=== PATIENT | female | born 1960 | race Caucasian/White ===

== ENCOUNTER → 2018-09-11 | Outpatient (CLI) | payer BC | LOC: MC.RAD 14:13 | DX: Z12.31 Encounter for screening mammogram for malignant neoplasm of breast (principal); N63.23 Unspecified lump in the left breast, lower outer quadrant ==

== ENCOUNTER → 2018-09-25 | Outpatient (CLI) | payer BC | LOC: MC.RAD 07:59 | DX: N63.20 Unspecified lump in the left breast, unspecified quadrant (principal) ==

== ENCOUNTER → 2019-04-29 | Outpatient (CLI) | payer BC | LOC: MC.RAD 13:00 | DX: N63.20 Unspecified lump in the left breast, unspecified quadrant (principal) ==

== ENCOUNTER → 2019-10-11 | Outpatient (CLI) | payer BC | LOC: MC.RAD 10:57 | DX: Z12.31 Encounter for screening mammogram for malignant neoplasm of breast (principal) ==

== ENCOUNTER → 2020-11-13 | Outpatient (CLI) | payer BC | LOC: MC.RAD 14:30 | DX: Z12.31 Encounter for screening mammogram for malignant neoplasm of breast (principal); N63.10 Unspecified lump in the right breast, unspecified quadrant ==

== ENCOUNTER → 2020-11-21 | Outpatient (CLI) | payer BC | LOC: MC.RAD 13:57 | DX: N60.01 Solitary cyst of right breast (principal) ==

== ENCOUNTER → 2021-11-19 | Outpatient (CLI) | payer BC | LOC: MC.RAD 14:08 | DX: Z12.31 Encounter for screening mammogram for malignant neoplasm of breast (principal) ==

== ENCOUNTER → 2023-01-07 | Outpatient (CLI) | payer BC | LOC: CANSCHCLI → MC.RAD 14:36 → COL.RAD 14:45 | DX: Z12.31 Encounter for screening mammogram for malignant neoplasm of breast (principal); N63.10 Unspecified lump in the right breast, unspecified quadrant; N63.20 Unspecified lump in the left breast, unspecified quadrant ==

== ENCOUNTER → 2023-07-21 | Outpatient (CLI) | payer MEDICARE, BC | LOC: MC.RAD 08:53 | DX: N63.10 Unspecified lump in the right breast, unspecified quadrant (principal); N63.20 Unspecified lump in the left breast, unspecified quadrant; N64.89 Other specified disorders of breast ==